=== PATIENT | female | born 1990 | race American Indian/Alaskan Native ===

== ENCOUNTER 2018-05-10 13:07 | Outpatient (CLI) | payer OTHER ==
--- NOTE | 2018-05-11 12:32 | Magnetic Resonance Report ---
BILATERAL BREAST MRI WITHOUT AND WITH CONTRAST: 05/10/18 13:07:00 CLINICAL: Bilateral breast lumps on clinical breast exam. COMPARISON:No recent mammogram or ultrasound images. However, she has reportedly had a recent negative bilateral mammogram with dense breasts and recent negative bilateral ultrasound. TECHNIQUE: Axial 1.0-mm T1 without, axial high resolution 2.0-mm T2 and axial 1.0-mm dynamic Vibrant high-resolution postcontrast T1 fat saturation sequences on a 1.5 Lucy magnet. The examination was performed with an 8 channel dedicated [place] breast coil. Post processing with CAD and subtraction was performed on an [employer] workstation. 16.0 cc of Multihance was injected without incident for the contrast portion of the exam. Consent was obtained prior to the administration of the contrast. FINDINGS: Right: Minimal background parenchymal enhancement. No mass or suspicious enhancement. No suspicious lymph nodes. Left: Minimal background parenchymal enhancement. No mass or suspicious enhancement. No suspicious lymph nodes. IMPRESSION: Negative bilateral MRI. Recommend clinical followup and routine mammographic screening based on ACS guidelines. BI-RADS 1 - - Negative
== END 2018-05-10 13:08 | disposition home or self-care (01) ==
LOC: SPVIMAG 13:07
PROVIDERS: ATTEND Surgery
DX: N63.11 Unspecified lump in the right breast, upper outer quadrant (principal); N63.21 Unspecified lump in the left breast, upper outer quadrant
CPT/HCPCS: A9577; C8908; 77059